=== PATIENT | male | born 1960 | race Caucasian/White ===

== ENCOUNTER 2021-08-20 02:31 | Inpatient (IN) | payer OTHER ==
[~2021-08-20] VITALS: Ht 190.5 cm; Wt 66.5 kg
[~2021-08-20 02:31] MED LIST: ALPRAZOLAM0.5 MG PO; AUGMENTIN TAB875 MG PO; BETADINE OINT 101 GM TOP; COUMADIN 10MG T10 MG PO; FLOMAX 0.4 MG0.4 MG PO; GLUCOPHAGE 500500 MG PO; LISINOPRIL40 MG PO; MIRAPEX0.5 MG PO; PLAVIX 75 MG TA75 MG PO; PRAVACHOL80 MG PO; PROAIR HFA8.5 GM INH; SYMBICORT 160-1 INHA INH; VITAMIN C 500500 MG PO
[2021-08-20 03:04] LABS: HEMOGLOBIN 14.1 gm/dl (14.0-17.5); RED BLOOD COUNT 4.35 M/UL (4.20-5.50)
[2021-08-20 03:28] LABS: BUN/CREATININE RATIO 17 (0-10)
[2021-08-20] MEDS ORDERED: NEURONTIN600 MG PO (07:13)
[2021-08-20] MEDS ORDERED: ALBUTEROL2.5 MG/3 M INH (10:30)
[2021-08-20] MEDS ORDERED: AMLODIPINE BESY10 MG PO (10:31)
[2021-08-20] MEDS ORDERED: ELIQUIS5 MG PO (10:31)
[2021-08-20] MEDS ORDERED: OYSTERCAL-D 501 EACH PO (10:33)
[2021-08-20] MEDS ORDERED: FLONASE ALLER15.8 ML (10:34)
[2021-08-20] MEDS ORDERED: CLONIDINE HCL0.1 MG PO (10:34)
[2021-08-20] MEDS ORDERED: LEVOTHYROXINE50 MCG PO (10:35)
[2021-08-20] MEDS ORDERED: METHOCARBAMOL500 MG PO (10:35)
[2021-08-20] MEDS ORDERED: LORATADINE10 MG PO (10:35)
[2021-08-20] MEDS ORDERED: PROTONIX40 MG PO (10:36)
[2021-08-20] MEDS ORDERED: SUCRALFATE1 GM PO (10:37)
[2021-08-20] MEDS ORDERED: HYDROCODON-ACE1 EAC2 PO (10:38)
[2021-08-20] MEDS ORDERED: CYANOCOBAL1000 MCG/1 INJ (10:40)
[2021-08-20] MEDS ORDERED: ASPIRIN EC81 MG PO (10:55)
[2021-08-20 14:28] LABS: BODY FLUID SOURCE PLEURAL
[2021-08-20 14:29] LABS: MONONUCLEAR CELLS 85.6 (75-100); POLYMORPHONUCLEAR % 14.4 (0-25); RBC (AUTOMATED) 1600 (0-100000); WBC (AUTOMATED) 514 (0-500)
--- NOTE | 2021-08-20 14:37 | NUR ---
08/20/21 1318 TIME OUT PERFORMED FOR LEFT THORACENTESIS PER DR MCKINNEY. PATIENT ALERT/ORIENTED, AGREES TO PROCEDURE. 08/20/21 1320 LEFT THORACENTESIS PROCEDURE STARTED. 08/20/21 1340 PROCEDURE COMPLETED, 2L YELLOW CLEAR FLUID REMOVED PER DR ENGLAND. PATIENT TOLERATED PROCEDURE WELL. RESP STATUS IMPROVED POST PROCEDURE. FLUID SENT TO LAB PER DR MCKINNEY ORDERS.
[2021-08-20 15:02] LABS: LDH, BODY FLUID 42 U/L; TOTAL PROTEIN, BODY FLUID 1.3 gm/dL
[2021-08-21 03:25] LABS: HEMOGLOBIN 13.1 gm/dl (14.0-17.5); RED BLOOD COUNT 3.96 M/UL (4.20-5.50); WHITE BLOOD COUNT 10.8 K/UL (4.5-11.0)
[2021-08-22 02:43] LABS: HEMOGLOBIN 12.8 gm/dl (14.0-17.5); RED BLOOD COUNT 3.8 M/UL (4.20-5.50); WHITE BLOOD COUNT 13.3 K/UL (4.5-11.0)
[2021-08-23 03:06] LABS: HEMOGLOBIN 12.3 gm/dl (14.0-17.5); RED BLOOD COUNT 3.7 M/UL (4.20-5.50); WHITE BLOOD COUNT 10.7 K/UL (4.5-11.0)
[2021-08-24 03:37] LABS: HEMOGLOBIN 13.5 gm/dl (14.0-17.5); RED BLOOD COUNT 3.99 M/UL (4.20-5.50); WHITE BLOOD COUNT 11.3 K/UL (4.5-11.0)
--- NOTE | 2021-08-24 10:01 | NUR ---
08/24/21 1001 PATIENT GRANDSON HERE TO SEE PATINT, DR ENGLAND SPOKE WITH [facility] REGARDING STATUS AND TRANSFER TO ICU. PHONE NUMBER HAS BEEN DISCONNECTED.
[2021-08-25 04:54] LABS: HEMOGLOBIN 12.6 gm/dl (14.0-17.5); RED BLOOD COUNT 3.95 M/UL (4.20-5.50); WHITE BLOOD COUNT 9.1 K/UL (4.5-11.0)
[2021-08-26 05:37] LABS: HEMOGLOBIN 12.7 gm/dl (14.0-17.5); RED BLOOD COUNT 3.8 M/UL (4.20-5.50); WHITE BLOOD COUNT 11.9 K/UL (4.5-11.0)
[2021-08-26 05:57] LABS: BUN/CREATININE RATIO 17 (0-10)
[2021-08-27 05:48] LABS: HEMOGLOBIN 13.1 gm/dl (14.0-17.5); RED BLOOD COUNT 3.99 M/UL (4.20-5.50); WHITE BLOOD COUNT 11.8 K/UL (4.5-11.0)
[2021-08-27 06:15] LABS: BUN/CREATININE RATIO 13 (0-10)
--- NOTE | 2021-08-27 12:21 | NUR ---
0745: DR. MCKINNEY NOTIFIED OF PATIENT BLEEDING WHEN BEING SUNCTIONED AND OXYGEN DROPPING TO 80'S. HE SAID TO CONTINUE THE ELIQUIS AND HOLD THE PLAVIX.
--- NOTE | 2021-08-27 12:25 | NUR ---
1130: PATIENT HAD A SIGNIFIGANT NEURO STATUS CHANGE. PATIENT IS NON-RESPONSIVE TO PAIN, PUPILS ARE PINPOINT AND NON-REACTIVE. DR. HINSON NOTIFIED AND COMING TO BEDSIDE.
--- NOTE | 2021-08-27 12:41 | NUR ---
1150: DR. MCKINNEY AT BEDSIDE TO INTUBATE.
[2021-08-27 13:07] LABS: HEMOGLOBIN 12.5 gm/dl (14.0-17.5); RED BLOOD COUNT 3.85 M/UL (4.20-5.50); WHITE BLOOD COUNT 13.5 K/UL (4.5-11.0)
[2021-08-27 20:02] LABS: HEMOGLOBIN 12.3 gm/dl (14.0-17.5); RED BLOOD COUNT 3.73 M/UL (4.20-5.50); WHITE BLOOD COUNT 13.8 K/UL (4.5-11.0)
[2021-08-27 20:39] LABS: BUN/CREATININE RATIO 13 (0-10)
[2021-08-28 06:02] LABS: HEMOGLOBIN 12.5 gm/dl (14.0-17.5); RED BLOOD COUNT 3.81 M/UL (4.20-5.50); WHITE BLOOD COUNT 12.4 K/UL (4.5-11.0)
[2021-08-28 06:22] LABS: BUN/CREATININE RATIO 15 (0-10)
[2021-08-29 05:21] LABS: HEMOGLOBIN 11.5 gm/dl (14.0-17.5); RED BLOOD COUNT 3.61 M/UL (4.20-5.50)
[2021-08-29 05:47] LABS: BUN/CREATININE RATIO 16 (0-10)
[2021-08-30 05:39] LABS: HEMOGLOBIN 11.1 gm/dl (14.0-17.5); RED BLOOD COUNT 3.45 M/UL (4.20-5.50); WHITE BLOOD COUNT 11.2 K/UL (4.5-11.0)
[2021-08-30 06:21] LABS: BUN/CREATININE RATIO 17 (0-10)
[2021-08-31 05:38] LABS: HEMOGLOBIN 12.6 gm/dl (14.0-17.5); WHITE BLOOD COUNT 10.7 K/UL (4.5-11.0)
[2021-08-31 05:40] LABS: RED BLOOD COUNT 3.9 M/UL (4.20-5.50)
[2021-08-31 06:06] LABS: BUN/CREATININE RATIO 19 (0-10)
[2021-09-01 04:28] LABS: HEMOGLOBIN 12.4 gm/dl (14.0-17.5); RED BLOOD COUNT 3.75 M/UL (4.20-5.50); WHITE BLOOD COUNT 13.1 K/UL (4.5-11.0)
[2021-09-01 04:48] LABS: BUN/CREATININE RATIO 18 (0-10)
[2021-09-02 05:17] LABS: HEMOGLOBIN 12.1 gm/dl (14.0-17.5); RED BLOOD COUNT 3.63 M/UL (4.20-5.50)
[2021-09-02 05:21] LABS: WHITE BLOOD COUNT 17.2 K/UL (4.5-11.0)
[2021-09-02 06:05] LABS: BUN/CREATININE RATIO 21 (0-10)
[2021-09-03 05:23] LABS: HEMOGLOBIN 11.8 gm/dl (14.0-17.5); RED BLOOD COUNT 3.58 M/UL (4.20-5.50); WHITE BLOOD COUNT 18.5 K/UL (4.5-11.0)
--- NOTE | 2021-09-04 02:11 | NUR ---
explained to patient that we are going to give him a bath, Attempted patient bath, patient is alert and oriented to place and person, patient attempts grabbing my hands and if pulling gown down, asked patient if he wants a bath and patient shakes head no, patient floated on pillows, pulled up in bed, sheets straightened and room straightened, patient made as comfortable as possible, restraints checked to ensure good circulation and ROM, patient educated again on the importance of not attempting to pull at ETT, patient resting
[2021-09-04 04:23] LABS: HEMOGLOBIN 11.6 gm/dl (14.0-17.5); RED BLOOD COUNT 3.55 M/UL (4.20-5.50); WHITE BLOOD COUNT 15.9 K/UL (4.5-11.0)
[2021-09-04 04:45] LABS: BUN/CREATININE RATIO 18 (0-10)
[2021-09-05 04:31] LABS: HEMOGLOBIN 12.3 gm/dl (14.0-17.5); RED BLOOD COUNT 3.75 M/UL (4.20-5.50); WHITE BLOOD COUNT 12.4 K/UL (4.5-11.0)
[2021-09-05 05:42] LABS: BUN/CREATININE RATIO 18 (0-10)
--- NOTE | 2021-09-06 01:02 | NUR ---
patient floated on pillows after complete bath, oral and nasal suction completed with copious amounts of sputum which is blood tinged yellow sputum, patient had large soft bowel movement, dressing changed on unstageable coccyx wound, DTI bilateral buttocks large dressing placed after wound cleaned, no drainage on wound, patient has difficulty clearing secretions without suctioning, patient plugged off and was able to suction to clear plug, provider Winnie notified of situation
--- NOTE | 2021-09-06 03:13 | NUR ---
PATIENT RESTING QUIETLY, V/S WNL, PATIENT PLACED ON PILLOWS BILATERALLY FLOATED ON PILLOWS
--- NOTE | 2021-09-06 03:26 | NUR ---
PATIENT SUCTIONED, COPIOUS AMOUNTS OF THICK SPUTUM, COUGH IS WEAK AND PATIENT IS UNABLE TO COMPLETELY CLEAR SECRETIONS WITHOUT SUCTIONING
[2021-09-06 03:46] LABS: HEMOGLOBIN 11.4 gm/dl (14.0-17.5); RED BLOOD COUNT 3.4 M/UL (4.20-5.50); WHITE BLOOD COUNT 13.8 K/UL (4.5-11.0)
[2021-09-06 04:08] LABS: BUN/CREATININE RATIO 17 (0-10)
--- NOTE | 2021-09-06 06:13 | NUR ---
ORAL SUCTION ON PATIENT COPIOUS AMOUNTS OF THICK SPUTUM
[2021-09-07 05:20] LABS: HEMOGLOBIN 12.3 gm/dl (14.0-17.5); WHITE BLOOD COUNT 11.9 K/UL (4.5-11.0)
[2021-09-07 05:22] LABS: RED BLOOD COUNT 3.76 M/UL (4.20-5.50)
[2021-09-08 05:37] LABS: HEMOGLOBIN 11.7 gm/dl (14.0-17.5); RED BLOOD COUNT 3.6 M/UL (4.20-5.50)
--- NOTE | 2021-09-08 18:20 | NUR ---
PT ARRIVED FROM PCU RESTING IN BED AWAITING TO PUT ON TELEMETRY
[2021-09-09 07:07] LABS: HEMOGLOBIN 12.5 gm/dl (14.0-17.5); RED BLOOD COUNT 3.79 M/UL (4.20-5.50)
[2021-09-09 07:10] LABS: WHITE BLOOD COUNT 16.9 K/UL (4.5-11.0)
[2021-09-09 07:55] LABS: BUN/CREATININE RATIO 18 (0-10)
[2021-09-10 07:01] LABS: HEMOGLOBIN 12.9 gm/dl (14.0-17.5); RED BLOOD COUNT 3.93 M/UL (4.20-5.50); WHITE BLOOD COUNT 15.7 K/UL (4.5-11.0)
[2021-09-10 07:48] LABS: BUN/CREATININE RATIO 17 (0-10)
[2021-09-10] MEDS ORDERED: LISINOPRIL10 MG NG (12:48)
[2021-09-10] MEDS ORDERED: VITAMIN B-1100 M1 PO (12:48)
[2021-09-10] MEDS ORDERED: LOPRESSOR 50 MG50 MG PO (12:48)
[2021-09-10] MEDS ORDERED: FOLIC ACID 1 MG1 MG PO (12:48)
[2021-09-10] MEDS ORDERED: DIGOXIN125 MCG PO (12:48)
[2021-09-10] MEDS ORDERED: LEVALBUTER1.25 MG/3 NEB (12:48)
[2021-09-10] MEDS ORDERED: LEVOFLOXACIN250 MG PO (12:48)
== END 2021-09-10 16:22 | disposition home or self-care (01) | DRG 853 ==
LOC: ER1 02:31 → CDU 05:02 → PROG CARE 05:02 → CCU 05:02 → PROG CARE 07:58 → CCU 08-24 10:20 → M/S 09-08 17:48
PROVIDERS: Family Medicine; Internal Medicine; Internal Medicine Pulmonary Disease; ADMIT Internal Medicine
PROC: 0W9B3ZZ Drainage of Left Pleural Cavity, Percutaneous Approach (ICD-10-PCS; 2021-08-20)
PROC: BB4BZZZ Ultrasonography of Pleura (ICD-10-PCS; 2021-08-20)
PROC: B24BZZZ Ultrasonography of Heart with Aorta (ICD-10-PCS; 2021-08-21)
PROC: 5A09457 Assistance with Respiratory Ventilation, 24-96 Consecutive Hours, Continuous Positive Airway Pressure (ICD-10-PCS; 2021-08-24)
PROC: 0W3Q8ZZ Control Bleeding in Respiratory Tract, Via Natural or Artificial Opening Endoscopic (ICD-10-PCS; 2021-08-27)
PROC: 0BH17EZ Insertion of Endotracheal Airway into Trachea, Via Natural or Artificial Opening (ICD-10-PCS; 2021-08-27)
PROC: 0BJ08ZZ Inspection of Tracheobronchial Tree, Via Natural or Artificial Opening Endoscopic (ICD-10-PCS; 2021-08-27)
PROC: 5A1955Z Respiratory Ventilation, Greater than 96 Consecutive Hours (ICD-10-PCS; principal; 2021-08-27 12:13)
PROC: 0DH63UZ Insertion of Feeding Device into Stomach, Percutaneous Approach (ICD-10-PCS; 2021-08-29)
PROC: 3E0G76Z Introduction of Nutritional Substance into Upper GI, Via Natural or Artificial Opening (ICD-10-PCS; 2021-08-29)
PROC: 5A0945A Assistance with Respiratory Ventilation, 24-96 Consecutive Hours, High Flow/Velocity Cannula (ICD-10-PCS; 2021-09-01)
PROC: 0BH17EZ Insertion of Endotracheal Airway into Trachea, Via Natural or Artificial Opening (ICD-10-PCS; 2021-09-01)
PROC: 5A1955Z Respiratory Ventilation, Greater than 96 Consecutive Hours (ICD-10-PCS; 2021-09-01)
DX: A41.02 Sepsis due to Methicillin resistant Staphylococcus aureus (principal); J96.21 Acute and chronic respiratory failure with hypoxia; J15.212 Pneumonia due to Methicillin resistant Staphylococcus aureus; J69.0 Pneumonitis due to inhalation of food and vomit; G93.41 Metabolic encephalopathy; I50.33 Acute on chronic diastolic (congestive) heart failure; J96.22 Acute and chronic respiratory failure with hypercapnia; N17.9 Acute kidney failure, unspecified; J44.1 Chronic obstructive pulmonary disease with (acute) exacerbation; F10.231 Alcohol dependence with withdrawal delirium; I48.92 Unspecified atrial flutter; J90 Pleural effusion, not elsewhere classified; E87.3 Alkalosis; E87.1 Hypo-osmolality and hyponatremia; I47.1 Supraventricular tachycardia; E46 Unspecified protein-calorie malnutrition; Z20.822 Contact with and (suspected) exposure to COVID-19; R65.20 Severe sepsis without septic shock; L89.302 Pressure ulcer of unspecified buttock, stage 2; I11.0 Hypertensive heart disease with heart failure; F17.210 Nicotine dependence, cigarettes, uncomplicated; F11.90 Opioid use, unspecified, uncomplicated; E78.5 Hyperlipidemia, unspecified; E11.51 Type 2 diabetes mellitus with diabetic peripheral angiopathy without gangrene; E87.5 Hyperkalemia; E87.70 Fluid overload, unspecified; R53.81 Other malaise; E03.9 Hypothyroidism, unspecified; R04.0 Epistaxis; E88.09 Other disorders of plasma-protein metabolism, not elsewhere classified; F41.9 Anxiety disorder, unspecified; G89.4 Chronic pain syndrome; K74.60 Unspecified cirrhosis of liver; I73.9 Peripheral vascular disease, unspecified; Z89.611 Acquired absence of right leg above knee; Z79.01 Long term (current) use of anticoagulants; Z79.82 Long term (current) use of aspirin; Z89.512 Acquired absence of left leg below knee; Z79.4 Long term (current) use of insulin; Z99.81 Dependence on supplemental oxygen; Z83.3 Family history of diabetes mellitus; Z78.1 Physical restraint status; Z91.041 Radiographic dye allergy status; Z88.8 Allergy status to other drugs, medicaments and biological substances; Z82.49 Family history of ischemic heart disease and other diseases of the circulatory system; Z74.01 Bed confinement status; Z68.21 Body mass index [BMI] 21.0-21.9, adult
CPT/HCPCS: ECHO; 31500; 36415; 36430; 36600; 70450; 71045; 71250; 74018; 74150; 76705; 80048; 80053; 80162; 81001; 82140; 82550; 82553; 82565; 82570; 82803; 82962; 83036; 83605; 83615; 83735; 83880; 84100; 84132; 84156; 84157; 84300; 84439; 84443; 84484; 85025; 85027; 85610; 86140; 86850; 86900; 86901; 86927; 87040; 87070; 87077; 87086; 87186; 87205; 89050; 89051; 92526; 92610; 93005; 93306; 93880; 94002; 94003; 94640; 94660; 94664; 94667; 94668; 94760; 96374; 96375; 99285; A6212; C9113; G0480; J0360; J0456; J0696; J1160; J1205; J1335; J1630; J1650; J1940; J2020; J2060; J2248; J2250; J2543; J2704; J2920; J2930; J3411; J3420; J3475; J3486; J7030; P9017; P9047; U0002